=== PATIENT | female | born 1995 | race American Indian/Alaskan Native ===

== ENCOUNTER 2021-10-16 10:21 | Emergency (ER) | payer OTHER ==
[2021-10-16 10:43] VITALS: BP 127/68
== END 2021-10-16 10:51 | disposition left against medical advice (07) ==
LOC: ED 10:21
DX: N89.8 Other specified noninflammatory disorders of vagina (principal); Z53.21 Procedure and treatment not carried out due to patient leaving prior to being seen by health care provider

== ENCOUNTER 2021-10-17 09:43 | Emergency (ER) | payer OTHER ==
[2021-10-17 11:11] LABS: Color,Urine Yellow (Yellow)
[2021-10-17 11:12] LABS: Bilirubin,Urine Negative (Negative)
[2021-10-17 11:13] LABS: Blood,Urine Negative (Negative); Protein,Urine <30 mg dL mg/dL (Negative)
[2021-10-17 11:14] LABS: HCG Qualitative,Urine Negative (Negative)
[2021-10-17 11:19] LABS: Bacteria,Urine 1+ /HPF (Negative); Mucus,Urine 1+ /HPF; RBC,Urine < 1.0 /HPF (0.0-6.0)
[2021-10-17] MEDS ORDERED: LIDOCAINE-MPF (1%) 10 MG/1 ML VIAL 5 ML INFILTRATI ONE (11:25)
--- NOTE | 2021-10-17 11:26 | Emergency Department Report ---
ED Dysuria HPI - HPI Chief Complaint: Urogenital-Female Stated Complaint: VAGINAL ITCHING Time Seen by Provider: 10/17/21 10:47 Duration: 2 Days Location of Discomfort: Suprapubic Severity: Mild Symptoms: Dysuria: Yes, Frequency: No, Suprapubic Pain: No, Flank Pain: No, Fever: No, Hematuria: No, Abdominal Pain: No, Previous UTI's: No Other History: Patient is a 26-year-old female that comes to the ER with dysuria. She has no fever or chills on report. She does have a low-grade fever on admission to the ER. She has no back pain. No abdominal pain. No nausea vomiting or diarrhea. She states that she thought she had a yeast infection so she took the antifungal. She had gotten no relief. She has not seen her PCP. ED Review of Systems ROS: Stated complaint: VAGINAL ITCHING Other details as noted in HPI Comment: All other systems reviewed and negative ED Past Medical Hx - Past Medical History Previous Medical History?: Yes Hx Psychiatric Treatment: Yes (major depression) Additional medical history: generalized anxiety, PTSD - Surgical History Past Surgical History?: No - Family History Family history: no significant - Social History Smoking Status: Never Smoker Substance Use Type: None - Medications Home Medications: Home Medications Medication Instructions Recorded Confirmed Last Taken Type Sulfamethoxazole/Trimethoprim 1 each PO BID #10 tablet 10/17/21 Unknown Rx [Bactrim DS TAB] Dysuria Exam - Exam General: Vital signs noted. No distress. Alert and acting appropriately. Exam: Yes Moist Mucous Membranes, No CVA Tenderness, No Abdominal Tenderness, No Rigidity or Guarding Labs: Lab Results 10/17/21 Range/Units Unknown Urine Color Yellow (Yellow) Urine Turbidity Slightly cloudy (Clear) Urine pH 6.0 (5.0-7.0) Ur Specific [place] 1.030 (1.003-1.030) Urine Protein <30 mg dl (Negative) mg/dL Urine Glucose (UA) Negative (Negative) mg/dL Urine Ketones Negative (Negative) mg/dL Urine Blood Negative (Negative) Urine Nitrite Negative (Negative) Urine Bilirubin Negative (Negative) Urine Urobilinogen 0.0 (<2.0) mg/dL Ur Leukocyte Esterase Moderate (Negative) Urine RBC (Auto) < 1.0 (0.0-6.0) /HPF U Epithel Cells (Auto) 5.0 (0-13.0) /HPF Urine HCG, Qual Negative (Negative) ED Course Vital Signs 10/17/21 09:55 Temperature 99.7 F H Pulse Rate 91 H Respiratory 17 Rate Blood Pressure 119/74 O2 Sat by Pulse 96 Oximetry ED Medical Decision Making - Medical Decision Making Labs 10/17/21 Unknown Urine Color Yellow Urine Turbidity Slightly cloudy Urine pH 6.0 Ur Specific [place] 1.030 Urine Protein <30 mg dl Urine Glucose (UA) Negative Urine Ketones Negative Urine Blood Negative Urine Nitrite Negative Urine Bilirubin Negative Urine Urobilinogen 0.0 Ur Leukocyte Esterase Moderate Urine RBC (Auto) < 1.0 U Epithel Cells (Auto) 5.0 Urine HCG, Qual Negative Vital Signs 10/17/21 09:55 Temperature 99.7 F H Pulse Rate 91 H Respiratory 17 Rate Blood Pressure 119/74 O2 Sat by Pulse 96 Oximetry negative. UA noted with moderate leuks. Patient given a gram of Rocephin ER IM. She has been discharged home on Bactrim. Culture and sensitivity reports pending. Patient discharged home with discharge plan of care including diet, activity, medications and follow-up. She verbalizes understanding of plan of care - Differential Diagnosis Rule out UTI, STD, Critical care attestation.: If time is entered above; I have spent that time in minutes in the direct care of this critically ill patient, excluding procedure time. ED Disposition Clinical Impression: UTI (urinary tract infection) Qualifiers: Urinary tract infection type: site unspecified Hematuria presence: without hematuria Qualified Code(s): N39.0 - Urinary tract infection, site not specified Disposition: HOME / SELF CARE / HOMELESS Is pt being admited?: No Does the pt Need Aspirin: No Condition: Stable Instructions: Urinary Tract Infection, Adult Additional Instructions: Motrin or Tylenol for pain or fever Medication as ordered today until gone. Then follow-up with primary care to make sure this is gone away. Have given you referral to PCP. Diet and activity as tolerated Prescriptions: Sulfamethoxazole/Trimethoprim [Bactrim DS TAB] 1 each PO BID #10 tablet Referrals: TANYA DUDLEY MD [Primary Care Provider] - 3-5 Days LUIS ENRIQUE MONAE MD [Staff Physician] - 3-5 Days Forms: Work/School Release Form(ED) Time of Disposition: 11:24
[2021-10-17 12:03] VITALS: BP 119/71
== END 2021-10-17 12:05 | disposition home or self-care (01) ==
LOC: ED 09:43
DX: N39.0 Urinary tract infection, site not specified (principal)
CPT/HCPCS: 81001; 81025; 96372; 99283; J0696; J3490